=== PATIENT | female | born 1995 | race Caucasian/White ===

== ENCOUNTER 2018-01-15 19:42 | Emergency (ER) | payer BC ==
[~2018-01-15] VITALS: Ht 154.9 cm; Wt 43.5 kg
[2018-01-15 20:05] VITALS: Ht 154.9 cm; Wt 43.5 kg
[2018-01-15 22:01] LABS: BASOPHIL % 1.4 % (0-2); PLATELET COUNT 261 x10^3mcL (130-400); RED CELL DISTRIBUTION WIDTH 13.3 % (11.5-14.5)
[2018-01-15 22:10] LABS: CALCIUM 8.8 mg/dL (8.5-10.1); CARBON DIOXIDE 27.2 mmol/L (21-32); CHLORIDE SERUM 101 mmol/L (98-107); CREATININE SERUM 0.5 mg/dL (0.6-1.0); GFR1 > 60 mL/min; GLUCOSE SERUM 86 mg/dL (74-106); POTASSIUM SERUM 3.4 mmol/L (3.5-5.1); SODIUM SERUM 140 mmol/L (136-145)
[2018-01-15 22:14] LABS: ALKALINE PHOSPHATASE 46 U/L (46-116); ALT/SGPT 16 U/L (14-59); AMYLASE 55 U/L (25-115); AST/SGOT 17 U/L (15-37); BILIRUBIN TOTAL 0.4 mg/dL (0.20-1.00); LIPASE 100 IU/L (73-393); TOTAL PROTEIN, SERUM 7.2 g/dL (6.4-8.2)
[2018-01-15 22:19] LABS: AMPHETAMINE QUAL UR NONE DETECTED (NEG <=1000)
[2018-01-16 00:23] VITALS: BP 103/56
== END 2018-01-16 00:17 | disposition home or self-care (01) ==
LOC: ED 19:42
PROVIDERS: Emergency Medicine
DX: N83.202 Unspecified ovarian cyst, left side (principal); N83.201 Unspecified ovarian cyst, right side; Z91.010 Allergy to peanuts
CPT/HCPCS: 83880; 85378; J2405; J7030; Q9967

== ENCOUNTER 2019-07-20 15:16 | Emergency (ER) | payer BC ==
[~2019-07-20] VITALS: Ht 152.4 cm; Wt 41.7 kg
[2019-07-20 15:26] VITALS: BP 126/73; Ht 152.4 cm; Wt 41.7 kg
== END 2019-07-20 19:41 | disposition left against medical advice (07) ==
LOC: ED 15:16
DX: Z53.21 Procedure and treatment not carried out due to patient leaving prior to being seen by health care provider (principal)